=== PATIENT | male | born 1960 | race Caucasian/White ===

== ENCOUNTER 2020-11-04 07:36 | Inpatient (IN) | payer BC ==
[~2020-11-04] VITALS: Ht 172.7 cm; Wt 101.0 kg
[~2020-11-04 07:36] MED LIST: ASPI-231 PO; CARV12.544 PO; CARV25TA PO; FURO20TA3 PO; GABA-339 PO; LISI20TA28 PO; OMEP20TA PO; SIMV-13 PO; TOPI50TA53 PO; TRAM50TA2 PO
[2020-11-04] MEDS ORDERED: VERAPAMIL 2.5MG/ML INJ 2ML VIAL IV ONE (09:18)
[2020-11-04] MEDS ORDERED: HEPARIN SODIUM (PORCINE) 5000 UNITS/ML 1ML VIAL ONE (09:18)
[2020-11-04] MEDS ORDERED: ANGIOMAX 250 MG VIAL IV ONE (09:18)
[2020-11-04] MEDS ORDERED: fentaNYL CITRATE 100 MCG/2 ML VL ONE (09:18)
[2020-11-04 09:19] LABS: Basophils # (auto) 0 10 ^3/uL (0-0.2); Basophils % (auto) 0.2 % (0.0-2.0); Eosinophils # (auto) 0 10 ^3/uL (0-0.8); Eosinophils % (auto) 0.1 % (0.0-7.0); Hematocrit 42.3 % (41.0-53.0); Hemoglobin 14.4 g/dL (13.5-17.5); Lymphocytes # (auto) 1.4 10 ^3/uL (0.4-5.4); Lymphocytes % (auto) 12.2 % (10.0-50.0); Mean Corpuscular Hemoglobin 30.3 pg (28.0-32.0); Monocytes # (auto) 0.6 10 ^3/uL (0-1.3); Monocytes % (auto) 5.7 % (0.0-12.0); Neutrophils # (auto) 9.1 10 ^3/uL (1.6-8.6); Neutrophils % (auto) 81.8 % (37.0-80.0); Platelet Count (auto) 176 10^3/uL (140-450); Red Blood Cells 4.75 10^6/uL (4.5-5.90); Red Cell Distribution Width 13.4 % (11.8-14.3); White Blood Cell 11.1 10^3/uL (4.4-10.8)
[2020-11-04] MEDS ORDERED: SODIUM CHL 0.9% 0 ML ONE (09:19)
[2020-11-04] MEDS ORDERED: MIDAZOLAM HCL 1MG/1ML-2 ML VIAL ONE (09:19)
[2020-11-04] MEDS ORDERED: LIDOCAINE 2%HCL (LOCAL ANESTH.) INJ 20ML MDV ONE (09:19)
[2020-11-04] MEDS ORDERED: IODIXANOL 320MG/ML 100ML BTL IV ONE (09:19)
[2020-11-04] MEDS ORDERED: NITROGLYCERIN 0.4 MG SL TAB SL PRN (13:45)
[2020-11-04] MEDS ORDERED: traMADol HCL 50 MG TAB PO PRN (13:45)
[2020-11-04] MEDS ORDERED: MORPHINE SULF INJ 2 MG/ML SYRINGE 1ML IV PRN (13:45)
[2020-11-04] MEDS ORDERED: PATIENTS OWN MEDICATION (Gabapentin 600 MG) PO SCH (14:00)
[2020-11-04] MEDS ORDERED: DEXTROSE (50%) 50ML SYRG IV PRN (15:00)
[2020-11-04] MEDS ORDERED: LORazepam 2MG/ML-1ML VIAL IV ONE (15:00)
[2020-11-04] MEDS ORDERED: IOHEXOL 350 MG/ML 100ML IJ ONE (16:03)
[2020-11-04] MEDS ORDERED: SODIUM CHLORIDE 0.9% 1,000 ML IV SCH ×2 (16:15)
[2020-11-04 16:50] VITALS: BP 157/85
[2020-11-04 16:59] VITALS: BP 163/90
[2020-11-04 17:16] LABS: Albumin 3.5 g/dL (3.4-5.0); Calcium 8.7 mg/dL (8.5-10.1); Potassium 3.8 mmol/L (3.5-5.1)
[2020-11-04 17:21] LABS: BUN/Creatinine Ratio 17.6; Bilirubin, Total 0.9 mg/dL (0.2-1.0); Total Protein 7.3 g/dL (6.4-8.2)
[2020-11-04] MEDS: ACCU-CHEK COMFORT CURVE STRIP VI SCH ×2 (17:37→23:39)
[2020-11-04] MEDS: InsuLIN REG 1unit/0.01ml Soln (100units/ml) SC SCH ×2 (17:43→23:40)
[2020-11-04] MEDS ORDERED: DexAMETHasone INJECTION 10 MG in D5W 5% 50 ML IV ONE (21:30)
[2020-11-04] MEDS ORDERED: PATIENTS OWN MEDICATION (Simvastatin 40 MG) PO SCH (22:00)
[2020-11-04] MEDS ORDERED: PATIENTS OWN MEDICATION (Carvedilol (Coreg) 25 MG) PO SCH (22:00)
[2020-11-04] MEDS ORDERED: MECLIZINE HCL 25 MG TAB PO SCH (22:00)
[2020-11-04] MEDS ORDERED: LISINOPRIL 20 MG TAB PO SCH (22:00)
[2020-11-04] MEDS ORDERED: CARVEDILOL 12.5 MG TAB PO SCH ×2 (22:00)
[2020-11-04] MEDS ORDERED: ENOXAPARIN SOD 60 MG/0.6 ML SYRINGE SC SCH (22:00)
[2020-11-04] MEDS ORDERED: TOPIRAMATE 100 MG TAB PO SCH (22:00)
[2020-11-04] MEDS ORDERED: TOPIRAMATE 100 MG PO SCH (22:00)
[2020-11-04] MEDS ORDERED: ATORVASTATIN 20 MG TAB PO SCH (22:00)
[2020-11-04] MEDS: GABAPENTIN 300 MG CAP PO SCH (22:48)
[2020-11-04] MEDS ORDERED: DexAMETHasone SOD PHOS 4 MG/1ML SDV INJ ONE ×2 (23:26→23:27)
[2020-11-04 23:30] VITALS: BP 160/82
[2020-11-04] MEDS: FUROSEMIDE 20 MG TAB PO SCH (23:38)
[2020-11-04] MEDS ORDERED: DexAMETHasone SOD PHOS 10MG/1ML VIAL INJ ONE (23:41)
[2020-11-04 23:45] VITALS: BP 160/88
[2020-11-05] VITALS (21 sets, daily range): BP systolic 142–175; BP diastolic 80–91
[2020-11-05 04:02] LABS: Basophils # (auto) 0 10 ^3/uL (0-0.2); Basophils % (auto) 0.2 % (0.0-2.0); Eosinophils # (auto) 0 10 ^3/uL (0-0.8); Hematocrit 41.9 % (41.0-53.0); Hemoglobin 14.8 g/dL (13.5-17.5); Lymphocytes # (auto) 0.7 10 ^3/uL (0.4-5.4); Lymphocytes % (auto) 6.6 % (10.0-50.0); Mean Corpuscular Hemoglobin 31.4 pg (28.0-32.0); Mean Corpuscular Hgb Conc. 35.4 g/dL (32.0-36.0); Mean Corpuscular Volume 88.8 fL (80.0-100.0); Monocytes # (auto) 0.2 10 ^3/uL (0-1.3); Monocytes % (auto) 1.4 % (0.0-12.0); Neutrophils # (auto) 10.2 10 ^3/uL (1.6-8.6); Neutrophils % (auto) 91.8 % (37.0-80.0); Platelet Count (auto) 171 10^3/uL (140-450); Red Blood Cells 4.72 10^6/uL (4.5-5.90); Red Cell Distribution Width 13.6 % (11.8-14.3); White Blood Cell 11.1 10^3/uL (4.4-10.8)
[2020-11-05] MEDS ORDERED: ACETAMINOPHEN 325 MG TAB PO PRN (04:15)
[2020-11-05 04:19] LABS: BUN/Creatinine Ratio 19.5; Calcium 8.5 mg/dL (8.5-10.1); Potassium 3.8 mmol/L (3.5-5.1)
[2020-11-05] MEDS: FUROSEMIDE 20 MG TAB PO SCH (06:25)
[2020-11-05] MEDS: GABAPENTIN 300 MG CAP PO SCH (06:25)
[2020-11-05] MEDS ORDERED: PANTOPRAZOLE 40 MG TAB PO SCH (10:00)
[2020-11-05] MEDS ORDERED: PATIENTS OWN MEDICATION (Omeprazole (Gnp Omeprazole) 40 MG) PO SCH (10:00)
[2020-11-05] MEDS ORDERED: ASPirin-EC 81 mg tab PO SCH (10:00)
== END 2020-11-05 06:47 | disposition short-term general hospital (02) | DRG 65 ==
LOC: CATH 07:36 → TELE 13:34 → TELE-EAST 15:58 → ICU WEST 23:10
PROVIDERS: ADMIT Internal Medicine; ATTEND Internal Medicine
PROC: 4A023N7 Measurement of Cardiac Sampling and Pressure, Left Heart, Percutaneous Approach (ICD-10-PCS; principal; 2020-11-04)
PROC: B2111ZZ Fluoroscopy of Multiple Coronary Arteries using Low Osmolar Contrast (ICD-10-PCS; 2020-11-04)
DX: I63.89 Other cerebral infarction (principal); G91.1 Obstructive hydrocephalus; E11.9 Type 2 diabetes mellitus without complications; E78.00 Pure hypercholesterolemia, unspecified; E66.9 Obesity, unspecified; F17.200 Nicotine dependence, unspecified, uncomplicated; I11.0 Hypertensive heart disease with heart failure; I25.10 Atherosclerotic heart disease of native coronary artery without angina pectoris; I50.9 Heart failure, unspecified; Z79.82 Long term (current) use of aspirin; Z79.899 Other long term (current) drug therapy; Z82.49 Family history of ischemic heart disease and other diseases of the circulatory system; Z83.3 Family history of diabetes mellitus; Z85.07 Personal history of malignant neoplasm of pancreas; Z95.5 Presence of coronary angioplasty implant and graft; Z68.34 Body mass index [BMI] 34.0-34.9, adult
CPT/HCPCS: 36415; 70450; 70496; 70498; 80048; 80053; 82962; 85025; 87081; 93005; 93458; 99152; 99153; C1769; G0378; J1100; J1815; J2250; J7060; Q9967